=== PATIENT | female | born 1970 | race Caucasian/White ===

== ENCOUNTER 2018-03-16 15:20 | Emergency (ER) | payer BC ==
[2018-03-16 15:58] VITALS: BP 113/72
--- NOTE | 2018-03-16 16:02 | UC ---
Abdominal Pain Female HPI - HPI Summary HPI Summary: Patient's to the urgent care today with 2 months of abdominal pain mostly in her right upper quadrant wrapping around her abdomen she complains of shortness of breath as well. She states she's been seen twice before and was told that this was pleuritic chest pain and to take anti-inflammatories for it. Patient had a CT scan of her chest on Wednesday and was ordered by her primary care doctor showed ground glass appearance in the left upper lung pleural effusion in the right lower 14 millimeter hypodensity in her liver and some mass effect on her right bronchi. - History of Current Complaint Chief Complaint: UCRespiratory Stated Complaint: ABD PAIN Time Seen by Provider: 03/16/18 15:56 Hx Obtained From: Patient Hx Last Menstrual Period: jan 08. periods have been less regular ?: No Onset/Duration: Gradual Onset, Lasting Weeks - 8, Still Present Timing: Constant Severity Initially: Severe Severity Currently: Severe Pain Intensity: 10 Pain Scale Used: 0-10 Numeric Location: Discrete At: RUQ, Discrete At: LUQ, Epigastric Radiates: No Character: Other - Uncomfortable feeling Aggravating Factor(s): Movement, Deep Breaths Alleviating Factor(s): Nothing, Other: - Is taking Relafen without much relief Allergies/Adverse Reactions: Allergies Allergy/AdvReac Type Severity Reaction Status Date / Time latex Allergy Unknown Rash Verified 03/16/18 15:43 Penicillins Allergy Unknown Hives Verified 03/16/18 15:42 Home Medications: Home Medications Esomeprazole Magnesium [Nexium 24Hr] 20 mg PO DAILY 03/16/18 [History Confirmed 03/16/18] Nabumetone 750 mg PO BEDTIME PRN 03/16/18 [History Confirmed 03/16/18] Tamoxifen TAB* [Nolvadex 10 MG*] 10 mg PO DAILY 03/16/18 [History Confirmed ] PMH/Surg Hx/FS Hx/Imm Hx Previously Healthy: No GI/ History: Gastroesophageal Reflux Cancer History: Breast Cancer - Surgical History Surgical History: Yes Surgery Procedure, Year, and Place: gallbladder removed '. 2 c-sections. lumpectomy - Family History Known Family History: Positive: None - Social History Occupation: Employed Full-time Lives: With Family Alcohol Use: Rare Substance Use Type: None Smoking Status (MU): Former Smoker Type: Cigarettes Amount Used/How Often: 1/2 pack qd Length of Time of Smoking/Using Tobacco: 20 yrs Have You Smoked in the Last Year: Yes When Did the Patient Quit Smoking/Using Tobacco: 2014 Household Exposure Type: Cigarettes Review of Systems Respiratory: Shortness Of Breath, Cough, Other - Patient reports she's been having worsening cough and shortness of breath over the last 8 weeks today she had pulmonary function test where she received some albuterol and finally got relief from that cough and shortness of breath pressure. Time Cardiovascular: Negative Gastrointestinal: Abdominal Pain Genitourinary: Negative Motor: Negative Neurovascular: Negative Musculoskeletal: Negative Neurological: Negative Psychological: Negative Is Patient Immunocompromised?: No All Other Systems Reviewed And Are Negative: Yes Physical Exam Triage Information Reviewed: Yes Appearance: No Pain Distress, Well-Nourished, Ill-Appearing - Some shortness of breath Vital Signs: Initial Vital Signs Temp 98.1 F 03/16/18 15:46 Pulse 88 03/16/18 15:46 Resp 20 03/16/18 15:46 BP 113/72 03/16/18 15:46 Pulse Ox 94 03/16/18 15:46 Vital Signs Reviewed: No Eye Exam: Normal Eyes: Positive: Conjunctiva Clear ENT Exam: Normal ENT: Positive: Normal ENT inspection, Hearing grossly normal, TMs normal, Uvula midline. Negative: Nasal congestion, Nasal drainage, Trismus, Muffled voice, Hoarse voice, Sinus tenderness Neck exam: Normal Neck: Positive: Supple, Nontender, No Lymphadenopathy Respiratory Exam: Normal Respiratory: Positive: Chest non-tender, Lungs clear, Normal breath sounds, Respiratory distress - mild-mild distress relieved after DuoNeb nebulizer Cardiovascular Exam: Normal Cardiovascular: Positive: RRR, No Murmur, Pulses Normal, Brisk Capillary Refill Abdomen Description: Positive: Other: - Diffuse tenderness in the right upper quadrant Bowel Sounds: Positive: Present Musculoskeletal Exam: Normal Musculoskeletal: Positive: Strength Intact, ROM Intact, No Edema Neurological Exam: Normal Neurological: Positive: Alert, Muscle Tone Normal Psychological Exam: Normal Skin Exam: Normal Abd Pain Female Course/Dx - Course Course Of Treatment: Patient wished to not go to the hospital tonight she did receive relief of the shortness of breath with DuoNeb. Patient wishes to follow up tomorrow with her oncology group appointment made with patient for her oncology [facility] for 2:00 tomorrow afternoon. Patient agreeable to go to the hospital should shortness of breath worsen and she is not getting relief with albuterol inhaler. Patient did ask for some pain medicine and 5 Vicodin were given patient was very reluctant to take the Vicodin for fear of getting addicted to pain medicine encouragement and safety reviewed with patient - Differential Dx/Diagnosis Provider Diagnoses: Right pleural effusion, right middle lobe mass, ground glass opacities in the left upper lobe 14 mm hypodensity in the liver, shortness of breath Discharge - Sign-Out/Discharge Documenting (check all that apply): Discharge - Discharge Plan Condition: Stable Disposition: HOME Prescriptions: Albuterol HFA INHALER* [Ventolin HFA Inhaler*] 2 puff INH Q4H PRN #1 mdi PRN Reason: cough HYDROcodone/ACETAMIN 5-325 MG* [[place] 5-325 TAB*] 1 tab PO Q6H PRN #5 tab MDD 4 PRN Reason: pain Patient Education Materials: Pleural Effusion (ED), How to Use a Metered-Dose Inhaler (ED) Referrals: Stormy Siu NP [Nurse Practitioner] - 03/17/18 2:00 pm - Billing Disposition and Condition Condition: STABLE Disposition: HOME
[2018-03-16] MEDS: Albuterol/Ipratropium NEB.SOL* Albuterol 2.5 MG/Ipratropium 0.5 MG 3 ML INH ONE (17:06)
== END 2018-03-16 17:28 | disposition home or self-care (01) ==
LOC: UCCORT 15:20
DX: J90 Pleural effusion, not elsewhere classified (principal); K76.89 Other specified diseases of liver; R06.02 Shortness of breath; Z88.0 Allergy status to penicillin; Z91.040 Latex allergy status; K21.9 Gastro-esophageal reflux disease without esophagitis; C50.919 Malignant neoplasm of unspecified site of unspecified female breast; Z79.899 Other long term (current) drug therapy
CPT/HCPCS: 99212; A9270-GY; G0463